=== PATIENT | female | born 1975 | race African-American/Black ===

== ENCOUNTER 2017-11-03 15:43 | Emergency (ER) | payer OTHER ==
[2017-11-03 15:51] VITALS: BMI 25.5
--- NOTE | 2017-11-03 16:31 | PDOC ---
History of Present Illness - General Chief Complaint: Palpitations Stated Complaint: PALPITATIONS Time Seen by Provider: 11/03/17 15:53 History Source: Patient Exam Limitations: No Limitations - History of Present Illness Initial Comments: 11/03/17 16:22 42 yo female no sig pmh presents to the ED for 2 weeks of intermittent chest palpitations, left chest soreness and left shoulder and head pain. Patient states these s/s started suddenly without warning or correlation to activity and palpations/chest soreness occur around 3X a day. Palpitations are made better with deep breaths and resolve in less than 5 min. Patient went to an urgent care 1 week ago and was told to take Ibuprofen which has not helped. No current chest soreness or palpitations. Patient denies SOB, back pain, dizziness /lightheadedness, n/v/f/c or recent illness or travel. Past History - Past Medical History Allergies/Adverse Reactions: Allergies Allergy/AdvReac Type Severity Reaction Status Date / Time No Known Allergies Allergy Verified 11/03/17 15:45 Home Medications: Ambulatory Orders NK [No Known Home Medication] 11/03/17 COPD: No - Surgical History Appendectomy: Yes - Suicide/Smoking/Psychosocial Hx Smoking History: Never smoked Hx Alcohol Use: No Drug/Substance Use Hx: No Review of Systems - Review of Systems Constitutional: No: Chills, Fever, Weakness Respiratory: No: Orthopnea, Shortness of Breath, SOB with Exertion Cardiac (ROS): Yes: Other (left breast soreness). No: Chest Pain ABD/GI: No: Constipated, Diarrhea, Nausea, Vomiting : No: Burning, Dysuria Musculoskeletal: Yes: Other (left shoulder pain). No: Back Pain *Physical Exam - Vital Signs Last Vital Signs Temp Pulse Resp BP Pulse Ox 99.1 F 78 24 106/59 100 11/03/17 15:46 11/03/17 15:46 11/03/17 15:46 11/03/17 15:46 11/03/17 15:46 - Physical Exam General Appearance: Yes: Nourished, Appropriately Dressed. No: Apparent Distress HEENT: positive: EOMI Respiratory/Chest: positive: Lungs Clear, Normal Breath Sounds Cardiovascular: positive: Regular Rhythm, Regular Rate, S1, S2. negative: Edema , JVD, Murmur Vascular Pulses: Dorsalis-Pedis (R): 4+, Doralis-Pedis (L): 4+ Gastrointestinal/Abdominal: positive: Normal Bowel Sounds. negative: Rebound, Tenderness Musculoskeletal: positive: Normal Inspection Extremity: positive: Normal Capillary Refill Integumentary: positive: Normal Color, Dry, Warm Neurologic: positive: Fully Oriented, Alert, Normal Mood/Affect ED Treatment Course - LABORATORY CBC & Chemistry Diagram: 11/03/17 17:00 11/03/17 17:00 Medical Decision Making - Medical Decision Making 11/03/17 19:09 42 yo female no sig pmh presents to the ED for 2 weeks of intermittent chest palpitations, left chest soreness and left shoulder and head pain. Patient states these s/s started suddenly without warning or correlation to activity and palpations/chest soreness occur around 3X a day. Palpitations are made better with deep breaths and resolve in less than 5 min. Patient went to an urgent care 1 week ago and was told to take Ibuprofen which has not helped. No current chest soreness or palpitations. Patient denies SOB, back pain, dizziness /lightheadedness, n/v/f/c or recent illness or travel. Exam: Heart and lungs clear. No pulsitile masses equal pressures in bilateral upper ext Labs: Trops negative, Normal EKG and Normal; Chest x ray Will send patient home with PCP follow up and advise holter monitor *DC/Admit/Observation/Transfer Diagnosis at time of Disposition: Palpitations - Discharge Dispostion Disposition: HOME Condition at time of disposition: Good Decision to Admit order: No - Referrals Referrals: papi goncalves [Other] - Patient Instructions Printed Discharge Instructions: Arrhythmias, DI for Arrhythmias, DI for Palpitations Additional Instructions: Please follow up with your Primary care doctor and set appointment within the next 2 days. Request a Holter monitor as well. Please return to the Emergency Room for severe chest pain, palpitations that do not stop on there own, dizziness or shortness of breath. Thank you - Post Discharge Activity Forms/Work/School Notes: Back to Work
[2017-11-03 17:08] LABS: BASO % 0.9 % (0-2.0); EOS % 7.2 % (0-4.5); HEMATOCRIT 34.8 % (32.4-45.2); HEMOGLOBIN 11.6 GM/dL (10.7-15.3); LYMPH % 32.6 % (8-40); MCH 29.2 pg (25.7-33.7); MCHC 33.4 g/dl (32.0-36.0); MEAN CELL VOLUME 87.3 fl (80-96); MEAN PLT VOLUME 10.6 fl (7.5-11.1); MONO % 12.4 % (3.8-10.2); NEUT % 46.9 % (42.8-82.8); PLATELET COUNT 152 K/MM3 (134-434); RBC 3.99 M/mm3 (3.60-5.2); RDW 15.4 % (11.6-15.6); WHITE BLOOD COUNT 4.6 K/mm3 (4.0-10.0)
[2017-11-03 17:32] LABS: ANION GAP 9 MMOL/L (8-16); BILIRUBIN,TOTAL 0.3 mg/dL (0.2-1.0); BLOOD UREA NITROGEN 16 mg/dL (7-18); CALCIUM 9.2 mg/dL (8.5-10.1); CHLORIDE 105 mmol/L (98-107); CO2 27 mmol/L (21-32); CREATININE 1.1 mg/dL (0.55-1.3); GLUCOSE,RANDOM 91 mg/dL (74-106); SGPT/ALT 16 U/L (13-61); SODIUM 141 mmol/L (136-145); TOT PROT 7.7 g/dl (6.4-8.2)
[2017-11-03 17:36] LABS: ALK PHOS 55 U/L (45-117); SGOT/AST 12 U/L (15-37)
--- NOTE | 2017-11-03 19:16 | PDOC ---
Attending Attestation - Resident Resident Name: Cesar Barbosa - ED Attending Attestation I have performed the following: I have examined & evaluated the patient, The case was reviewed & discussed with the resident, I agree w/resident's findings & plan, Exceptions are as noted - HPI HPI: 11/03/17 19:07 Patient is a 42 year old female with no significant past medical history who presents to the ED with complaints of intermittent palpitations that began 2 weeks ago. Patient reports chest palpitations lasting a few minutes at a time and associated left chest soreness as well as left shoulder pain and head pain. She reports symptoms occurr about 3 times per day without warning. Patient reports symptoms subside after 5 minutes. She states taking deep breaths helps alleviate the symptoms. Pt had an episode at work today that prompted her to come to ER, but she currently denies any symptoms. Currently denies chest pain, Sob. Denies nausea, vomiting. Denies contact with sick individuals, out of state travelling. Denies dysuria, hematuria. Denies diarrhea, constipation. Denies any other symptoms. Allergies: None Social history: No smoking. No alcohol. No illicit drugs. Surgical history: None PMD: None - Physicial Exam PE: 11/03/17 19:10 "GENERAL: Awake, alert, and fully oriented, in no acute distress. HEAD: No signs of trauma EYES: PERRLA, EOMI, sclera anicteric, conjunctiva clear ENT: Auricles normal inspection, hearing grossly normal, nares patent, oropharynx clear without exudates. Moist mucosa NECK: Nontender, no stepoffs, Normal ROM, supple, no lymphadenopathy, JVD, or masses LUNGS: Breath sounds equal, clear to auscultation bilaterally. No wheezes, and no crackles HEART: Regular rate and rhythm, normal S1 and S2, no murmurs, rubs or gallops ABDOMEN: Soft, nontender, normoactive bowel sounds. No guarding, no rebound. No masses EXTREMITIES: Normal range of motion, no edema. No clubbing or cyanosis. No cords, erythema, or tenderness NEUROLOGICAL: Cranial nerves II through XII intact. 5/5 strength and sensation in all extremities, Normal speech, normal gait, normal cerebellar function SKIN: Warm, Dry, normal turgor, no rashes or lesions noted." - Medical Decision Making 11/03/17 19:11 42 F with intermittent palpitations x 2 weeks. EKG NSR with no signs of arrhythmia at the moment. No signs of ischemia. Vitals wnl. Pt currently asymptomatic. - Labs, trop - CXR 11/03/17 19:16 Labs wnl, trop negative XR negative on my read Pt continues to be asymptomatic Pt to f/u with PMD for holter monitor. Pt is well appearing, with normal vitals. Clinically stable for DC at this time. I discussed the physical exam findings, ancillary test results and final diagnoses with the patient. I answered all of the patient's questions. The patient was satisfied with the care received and felt comfortable with the discharge plan and treatment plan. The patient agrees to follow up with the primary care physician within 24-72 hours.
[2017-11-03 20:37] VITALS: BP 110/76; PULSE 86; TEMP 98.5
--- NOTE | 2017-11-04 21:29 | EKG ---
Test Reason : Blood Pressure : / mmHG Vent. Rate : 066 BPM Atrial Rate : 066 BPM P-R Int : 162 ms QRS Dur : 082 ms QT Int : 400 ms P-R-T Axes : 069 071 061 degrees QTc Int : 419 ms NORMAL SINUS RHYTHM NORMAL ECG NO PREVIOUS ECGS AVAILABLE Confirmed by NICK WALL MD ([id number]) on 11/04/2017 9:29:22 PM Referred By: Confirmed By:NICK WALL MD
== END 2017-11-03 19:58 | disposition home or self-care (01) ==
LOC: JER 15:43
DX: R00.2 Palpitations (principal)
CPT/HCPCS: 36415; 71046-TC-FY; 80053; 82550; 82553; 84484; 84703; 85025; 93005; 93010; 99285-25

== ENCOUNTER 2017-11-13 08:19 | Emergency (ER) | payer OTHER ==
[2017-11-13 08:27] VITALS: BP 113/56; PULSE 78; TEMP 98.3; BMI 24.6
--- NOTE | 2017-11-13 08:44 | PDOC ---
History of Present Illness - General Chief Complaint: Pain Stated Complaint: extreme pain in rt leg Time Seen by Provider: 11/13/17 08:33 History Source: Patient Exam Limitations: No Limitations - History of Present Illness Initial Comments: 11/13/17 08:49 Patient for the past 3 days has had progressive worsening of right groin and hip pain. 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 States is progressively worsened where yesterday she was out and needed to take an ambulance. Went to [facility] where she was not attended to, returned home and came today for further evaluation. Denies numbness or tingling to foot, has no history of DVT, no deep fevers shortness of breath palpitations or any other illness. Only ibuprofen for pain relief Occurred: reports: other Severity: reports: moderate Pain Location: reports: lower extremity Method of Injury: Yes: unknown Modifying Factors: improves with: None Loss of Consciousness: no loss of consciousness Associated Symptoms (Fall): denies symptoms Past History - Travel Traveled outside of the country in the last 30 days: No Close contact w/someone who was outside of country & ill: No - Past Medical History Allergies/Adverse Reactions: Allergies Allergy/AdvReac Type Severity Reaction Status Date / Time No Known Allergies Allergy Verified 11/13/17 08:22 Home Medications: Ambulatory Orders Cyclobenzaprine HCl 10 mg PO Q8H PRN #14 tablet 11/13/17 COPD: No - Surgical History Appendectomy: Yes - Suicide/Smoking/Psychosocial Hx Smoking History: Never smoked Hx Alcohol Use: No Drug/Substance Use Hx: No Review of Systems - Review of Systems Able to Perform ROS?: Yes Is the patient limited Czech proficient: Yes Constitutional: Yes: Symptoms Reported, See HPI, Malaise. No: Fever HEENTM: Yes: Symptoms Reported Respiratory: No: Symptoms reported Musculoskeletal: Yes: Symptoms Reported, See HPI, Joint Pain, Joint Swelling, Muscle Pain Integumentary: Yes: Symptoms Reported All Other Systems: Reviewed and Negative *Physical Exam - Vital Signs Last Vital Signs Temp Pulse Resp BP Pulse Ox 98.3 F 78 20 113/56 L 100 11/13/17 08:23 11/13/17 08:23 11/13/17 08:23 11/13/17 08:23 11/13/17 08:23 - Physical Exam General Appearance: Yes: Nourished, Appropriately Dressed, Apparent Distress, Mild Distress HEENT: positive: FELICITY, Normal ENT Inspection, TMs Normal, Pharynx Normal Neck: positive: Supple. negative: Tender Respiratory/Chest: positive: Lungs Clear Musculoskeletal: positive: Normal Inspection Extremity: positive: Normal Capillary Refill, Normal Inspection. negative: Normal Range of Motion (range of motion secondary to pain, swelling, and mild spasm palpated to the right inguinal area/groin. Pain is reproduced with any movement to the inguinal ligament and quads tendon) Integumentary: positive: Normal Color Neurologic: positive: lap hand tool II-XII NML intact, Fully Oriented, Alert, Normal Mood/ Affect, Normal Response, Motor Strength 06/23 Progress Note - Progress Note Progress Note: Right inguinal groin strain, all treat with NSAIDs and cyclobenzaprine *DC/Admit/Observation/Transfer Diagnosis at time of Disposition: Inguinal strain Qualifiers: Encounter type: initial encounter Laterality: right Qualified Code(s): S76.211A - Strain of adductor muscle, fascia and tendon of right thigh, initial encounter - Discharge Dispostion Disposition: HOME Condition at time of disposition: Stable Decision to Admit order: No - Prescriptions Prescriptions: Cyclobenzaprine HCl 10 mg PO Q8H PRN #14 tablet PRN Reason: spasm - Referrals Referrals: Satish Rodriguez MD [Staff Physician] - - Patient Instructions Printed Discharge Instructions: DI for Groin Strain Additional Instructions: Rest, no heavy lifting or exercise until pain is resolved Hot soaks to neck and low back as often as possible/hot showers or Jacuzzis No massage or therapy until spasm is gone Continue ibuprofen 2200 milligrams tablets every 6 hours for the next 3 days then as needed for pain and swelling Cyclobenzaprine 1-10mg every 8 hours as needed for spasm If not significant improvement within 24 hours with medication and rest regime, followup with private physician for change in medications and /or therapy. - Post Discharge Activity Forms/Work/School Notes: Back to Work
[2017-11-13] MEDS ORDERED: KETOROLAC TROMETHAMINE 60 MG/2 ML VIAL ONE (08:46)
[2017-11-13] MEDS ORDERED: KETOROLAC TROMETHAMINE 60 MG/2 ML VIAL IM ONE (08:49)
[2017-11-13] MEDS ORDERED: CYCLOBENZAPRINE HCL 10 MG TABLET (FP) ONE (09:08)
== END 2017-11-13 09:16 | disposition home or self-care (01) ==
LOC: JERFT 08:19 → JER 08:19 → JERFT 09:16
PROC: 3E0233Z Introduction of Anti-inflammatory into Muscle, Percutaneous Approach (ICD-10-PCS; principal; 2017-11-13)
DX: S76.211A Strain of adductor muscle, fascia and tendon of right thigh, initial encounter (principal); X50.1XXA Overexertion from prolonged static or awkward postures, initial encounter; Y93.89 Activity, other specified; Y92.89 Other specified places as the place of occurrence of the external cause; Y99.8 Other external cause status
CPT/HCPCS: 99281-25

== ENCOUNTER 2018-11-26 15:49 | Emergency (ER) | payer OTHER ==
[2018-11-26 16:01] VITALS: BMI 27.7
--- NOTE | 2018-11-26 16:01 | PDOC ---
Rapid Medical Evaluation Time Seen by Provider: 11/26/18 15:58 Medical Evaluation: Allergies Allergy/AdvReac Type Severity Reaction Status Date / Time No Known Allergies Allergy Verified 11/13/17 08:22 11/26/18 15:58 I performed a brief in-person evaluation of this patient. Healthy 43-year-old female with intermittent pain in her right side since yesterday evening. No vomiting, diarrhea, dysuria, other symptoms. Hx appendectomy. I have ordered the following: UA, pgu Patient will proceed to the main ED for further evaluation. Discharge Disposition - Diagnosis Abdominal pain - Referrals - Patient Instructions - Post Discharge Activity
[2018-11-26 16:48] LABS: PH,URINE >= 9.0 (5.0-8.0); URINE APPEARANCE CLEAR; URINE BILIRUBIN NEGATIVE (NEGATIVE); URINE COLOR YELLOW; URINE GLUCOSE (UA) NEGATIVE (NEGATIVE); URINE KETONE NEGATIVE (NEGATIVE); URINE LEUK ESTERASE NEGATIVE (NEGATIVE); URINE NITRITE NEGATIVE (NEGATIVE); URINE PROTEIN NEGATIVE (NEGATIVE)
[2018-11-26] MEDS ORDERED: ACETAMINOPHEN 1000 MG/100 ML VIAL (NON FORMULARY) IVPB ONE (17:58)
[2018-11-26] MEDS ORDERED: SODIUM CHLORIDE 1,000 ML IV STA (17:58)
[2018-11-26] MEDS ORDERED: ACETAMINOPHEN INJECTION 100 ML IVPB ONE (18:01)
[2018-11-26 18:24] LABS: BASO % 0.7 % (0-2.0); EOS % 5.6 % (0-4.5); HEMATOCRIT 36.3 % (32.4-45.2); LYMPH % 28.7 % (8-40); MCH 29.5 pg (25.7-33.7); MCHC 33.1 g/dl (32.0-36.0); MEAN CELL VOLUME 89.2 fl (80-96); MONO % 12.8 % (3.8-10.2); NEUT % 52.2 % (42.8-82.8); RBC 4.07 M/mm3 (3.60-5.2); WHITE BLOOD COUNT 5.6 K/mm3 (4.0-10.0)
--- NOTE | 2018-11-26 18:37 | PDOC ---
History of Present Illness - General Chief Complaint: Pain, Acute Stated Complaint: ABD PAIN LWR RT QUAD Time Seen by Provider: 11/26/18 15:58 History Source: Patient Exam Limitations: Clinical Condition - History of Present Illness Initial Comments: 11/26/18 18:35 Patient with no significant past medical history presented with complaint of sudden onset of right lower quadrant and pelvic region pain upon waking this morning. Denies nausea, vomiting, fever, chills, vaginal discharge or vaginal bleeding. Patient described pain as cramping pinching pain. LMP November 12. Denies any other symptoms. Patient s/p appendectomy in 1995. Is this a multiple visit Asthma Patient?: No Past History - Past Medical History Allergies/Adverse Reactions: Allergies Allergy/AdvReac Type Severity Reaction Status Date / Time No Known Allergies Allergy Verified 11/13/17 08:22 Home Medications: Ambulatory Orders NK [No Known Home Medication] 11/26/18 COPD: No - Surgical History Appendectomy: Yes - Immunization History Immunization Up to Date: No - Psycho Social/Smoking Cessation Hx Smoking History: Never smoked Have you smoked in the past 12 months: No Information on smoking cessation initiated: No Hx Alcohol Use: No Drug/Substance Use Hx: No Review of Systems - Review of Systems Able to Perform ROS?: Yes Is the patient limited Slovenian proficient: No Constitutional: No: Chills, Fever, Malaise HEENTM: No: Symptoms Reported Respiratory: No: Symptoms reported Cardiac (ROS): No: Symptoms Reported ABD/GI: Yes: Symptoms Reported, See HPI, Abdominal cramping (RLQ pain). No: Abd. Pain w/ defecation, Constipated, Diarrhea, Difficulty Swallowing, Nausea, Poor Appetite, Rectal Bleeding, Vomiting, Indigestion : Yes: See HPI, Pain (right pelvic). No: Symptoms Reported, Burning, Dysuria , Discharge, Frequency, Flank Pain, Hematuria, Incontinence, Urgency Musculoskeletal: No: Symptoms Reported Integumentary: No: Symptoms Reported Neurological: No: Symptoms reported All Other Systems: Reviewed and Negative *Physical Exam - Vital Signs Last Vital Signs Temp Pulse Resp BP Pulse Ox 98.0 F 71 18 116/62 100 11/26/18 15:58 11/26/18 15:58 11/26/18 15:58 11/26/18 15:58 11/26/18 15:58 - Physical Exam Comments: 11/26/18 18:34 GENERAL: Well developed, well nourished. Awake and alert. No acute distress. NECK: Supple. Full ROM. CARDIOVASCULAR: Regular rate and rhythm. No murmurs, rubs, or gallops. Distal pulses are 2+ and symmetric. PULMONARY: No evidence of respiratory distress. Lungs clear to auscultation bilaterally. No wheezing, rales or rhonchi. ABDOMINAL: Soft. Mild tenderness right lower quadrant and pelvic region. Non-distended. No rebound or guarding. No organomegaly. Normoactive bowel sounds. MUSCULOSKELETAL Normal range of motion at all joints. SKIN: Warm and dry. Normal capillary refill. NEUROLOGICAL: Alert, awake, appropriate. Gait is normal without ataxia. PSYCHIATRIC: Cooperative. Good eye contact. Appropriate mood General Appearance: Yes: Nourished, Appropriately Dressed. No: Apparent Distress ED Treatment Course - LABORATORY CBC & Chemistry Diagram: 11/26/18 18:05 11/26/18 18:05 - ADDITIONAL ORDERS Additional order review: Laboratory Results 11/26/18 11/26/18 16:17 16:17 Urine Color Yellow Urine Appearance Clear Urine pH >= 9.[address] [place] [address] 1.022 Urine Protein Negative Urine Glucose (UA) Negative Urine Ketones Negative Urine Blood Negative Urine Nitrite Negative Urine Bilirubin Negative Urine Urobilinogen 1.0 Ur Leukocyte Esterase Negative Urine HCG, Qual Negative - RADIOLOGY Radiology Studies Ordered: Category Date Time Status TRANSVAGINAL ULTRASOUND US [US] Stat Ultrasound 11/26/18 17:55 Ordered - Medications Given in the ED: ED Medications Discontinued Medications Generic Name Dose Route Start Last Admin Trade Name Reyesq PRN Reason Stop Dose Admin Acetaminophen 1,000 mg 11/26/18 17:58 11/26/18 18:08 Ofirmev Injection - IVPB 11/26/18 17:59 1,000 mg ONCE ONE Administration Medical Decision Making - Medical Decision Making 11/26/18 18:36 Patient with no significant past medical history presented with complaint of sudden onset of right lower quadrant and pelvic region pain upon waking this morning. Denies nausea, vomiting, fever, chills, vaginal discharge or vaginal bleeding. Patient described pain as cramping pinching pain. LMP November 12. Denies any other symptoms. Patient s/p appendectomy in 1995. Exam significant for mild tenderness to right lower quadrant and pelvic region without guarding or rebound otherwise normal exam. CBC, CMP and lipase level ordered. Pelvic ultrasound ordered to evaluate for pelvic pathology. IV hydration with 1 L normal saline ordered and Tylenol 1 g IV ordered for pain. Treat based on lab and imaging results 11/26/18 18:59 CBC, UA unremarkable. CMP labs pending. Hcg neg. Pelvic U/S pending. [facility] SEBASTIEN Naranjo for f/u care Discharge - Discharge Information Problems reviewed: Yes Clinical Impression/Diagnosis: Abdominal pain Qualifiers: Abdominal location: lower abdomen, unspecified Qualified Code(s): R10.30 - Lower abdominal pain, unspecified Condition: Stable - Follow up/Referral Referrals: ON STAFF,NOT [Primary Care Provider] - - Patient Discharge Instructions - Post Discharge Activity
[2018-11-26 18:59] LABS: BLOOD UREA NITROGEN 19.1 mg/dL (7-18)
[2018-11-26 19:00] LABS: ALBUMIN 4.1 g/dl (3.4-5.0); BILIRUBIN,TOTAL 0.3 mg/dL (0.2-1); CALCIUM 9.2 mg/dL (8.5-10.1); TOT PROT 7.8 g/dl (6.4-8.2)
[2018-11-26 19:08] LABS: PLATELET COUNT 182 K/MM3 (134-434)
--- NOTE | 2018-11-26 19:18 | PDOC ---
History of Present Illness - General Chief Complaint: Pain, Acute Stated Complaint: ABD PAIN LWR RT QUAD Time Seen by Provider: 11/26/18 15:58 Past History - Past Medical History Allergies/Adverse Reactions: Allergies Allergy/AdvReac Type Severity Reaction Status Date / Time No Known Allergies Allergy Verified 11/13/17 08:22 Home Medications: Ambulatory Orders NK [No Known Home Medication] 11/26/18 COPD: No - Surgical History Appendectomy: Yes - Immunization History Immunization Up to Date: No - Psycho Social/Smoking Cessation Hx Smoking History: Never smoked Have you smoked in the past 12 months: No Information on smoking cessation initiated: No Hx Alcohol Use: No Drug/Substance Use Hx: No Review of Systems - Review of Systems Is the patient limited Telugu proficient: No *Physical Exam - Vital Signs Last Vital Signs Temp Pulse Resp BP Pulse Ox 98.0 F 71 18 116/62 100 11/26/18 15:58 11/26/18 15:58 11/26/18 15:58 11/26/18 15:58 11/26/18 15:58 ED Treatment Course - LABORATORY CBC & Chemistry Diagram: 11/26/18 18:05 11/26/18 18:05 - ADDITIONAL ORDERS Additional order review: Laboratory Results 11/26/18 11/26/18 11/26/18 18:05 16:17 16:17 Sodium 137 Potassium 4.0 Chloride 105 Carbon Dioxide 26 Anion Gap 6 L BUN 19.1 H Creatinine 1.0 Est GFR (CKD-EPI)AfAm 79.91 Est GFR (CKD-EPI)NonAf 68.95 Random Glucose 83 Calcium 9.2 Total Bilirubin 0.3 AST 19 ALT 21 Alkaline Phosphatase 64 Total Protein 7.8 Albumin 4.1 Lipase 234 Urine Color Yellow Urine Appearance Clear Urine pH >= 9.0 H Ur Specific [place] 1.022 Urine Protein Negative Urine Glucose (UA) Negative Urine Ketones Negative Urine Blood Negative Urine Nitrite Negative Urine Bilirubin Negative Urine Urobilinogen 1.0 Ur Leukocyte Esterase Negative Urine HCG, Qual Negative 11/26/18 18:05 RBC 4.07 MCV 89.2 MCHC 33.1 RDW 15.0 MPV 10.0 Neutrophils % 52.2 Lymphocytes % 28.7 Monocytes % 12.8 H Eosinophils % 5.6 H Basophils % 0.7 - Medications Given in the ED: ED Medications Discontinued Medications Generic Name Dose Route Start Last Admin Trade Name Freq PRN Reason Stop Dose Admin Acetaminophen 1,000 mg 11/26/18 17:58 11/26/18 18:08 Ofirmev Injection - IVPB 11/26/18 17:59 1,000 mg ONCE ONE Administration Sodium Chloride 1,000 mls @ 1,000 mls/hr 11/26/18 17:58 11/26/18 18:08 Normal Saline - IV 11/26/18 18:57 1,000 mls/hr ASDIR STA Administration Discharge - Discharge Information Clinical Impression/Diagnosis: Abdominal pain Qualifiers: Abdominal location: lower abdomen, unspecified Qualified Code(s): R10.30 - Lower abdominal pain, unspecified Condition: Stable - Follow up/Referral Referrals: ON STAFF,NOT [Primary Care Provider] - - Patient Discharge Instructions - Post Discharge Activity
--- NOTE | 2018-11-26 19:42 | PDOC ---
*Physical Exam - Vital Signs Last Vital Signs Temp Pulse Resp BP Pulse Ox 98.0 F 71 18 116/62 100 11/26/18 15:58 11/26/18 15:58 11/26/18 15:58 11/26/18 15:58 11/26/18 15:58 ED Treatment Course - LABORATORY CBC & Chemistry Diagram: 11/26/18 18:05 11/26/18 18:05 - ADDITIONAL ORDERS Additional order review: Laboratory Results 11/26/18 11/26/18 11/26/18 18:05 16:17 16:17 Sodium 137 Potassium 4.0 Chloride 105 Carbon Dioxide 26 Anion Gap 6 L BUN 19.1 H Creatinine 1.0 Est GFR (CKD-EPI)AfAm 79.91 Est GFR (CKD-EPI)NonAf 68.95 Random Glucose 83 Calcium 9.2 Total Bilirubin 0.3 AST 19 ALT 21 Alkaline Phosphatase 64 Total Protein 7.8 Albumin 4.1 Lipase 234 Urine Color Yellow Urine Appearance Clear Urine pH >= 9.0 H Ur Specific [place] 1.022 Urine Protein Negative Urine Glucose (UA) Negative Urine Ketones Negative Urine Blood Negative Urine Nitrite Negative Urine Bilirubin Negative Urine Urobilinogen 1.0 Ur Leukocyte Esterase Negative Urine HCG, Qual Negative 11/26/18 18:05 RBC 4.07 MCV 89.2 MCHC 33.1 RDW 15.0 MPV 10.0 Neutrophils % 52.2 Lymphocytes % 28.7 Monocytes % 12.8 H Eosinophils % 5.6 H Basophils % 0.7 - Medications Given in the ED: ED Medications Discontinued Medications Generic Name Dose Route Start Last Admin Trade Name Freq PRN Reason Stop Dose Admin Acetaminophen 1,000 mg 11/26/18 17:58 11/26/18 18:08 Ofirmev Injection - IVPB 11/26/18 17:59 1,000 mg ONCE ONE Administration Sodium Chloride 1,000 mls @ 1,000 mls/hr 11/26/18 17:58 11/26/18 18:08 Normal Saline - IV 11/26/18 18:57 1,000 mls/hr ASDIR STA Administration Medical Decision Making - Medical Decision Making 11/26/18 19:42 patient is feeling better. US discussed Patient to follow-up with gynecology. Discharge - Discharge Information Problems reviewed: Yes Clinical Impression/Diagnosis: Abdominal pain Qualifiers: Abdominal location: lower abdomen, unspecified Qualified Code(s): R10.30 - Lower abdominal pain, unspecified Ovarian cyst Qualifiers: Laterality: bilateral Qualified Code(s): N83.201 - Unspecified ovarian cyst, right side Condition: Stable - Follow up/Referral Referrals: ON STAFF,NOT [Primary Care Provider] - - Patient Discharge Instructions Patient Printed Discharge Instructions: Ovarian Cyst Additional Instructions: TVUS b/l ovarian cysts. please see a religious educator as soon as possible you May take ibuprofen every 6 hours as needed for pain. - Post Discharge Activity Work/Back to School Note: Back to Work
[2018-11-26 19:47] VITALS: BP 119/72; PULSE 60; TEMP 98.2
== END 2018-11-26 20:05 | disposition home or self-care (01) ==
LOC: JER 15:49
PROC: 3E033NZ Introduction of Analgesics, Hypnotics, Sedatives into Peripheral Vein, Percutaneous Approach (ICD-10-PCS; principal; 2018-11-26)
DX: N83.201 Unspecified ovarian cyst, right side (principal)
CPT/HCPCS: 36415; 76830-TC; 80053; 81003; 83690; 84703; 85025; 87086; 99283-25; J0131; J7030

== ENCOUNTER 2021-04-08 08:05 | Emergency (ER) | payer OTHER ==
[2021-04-08 08:15] VITALS: BP 123/50; PULSE 63; TEMP 97.7; BMI 23.3
[2021-04-08] MEDS ORDERED: KETOROLAC TROMETHAMINE 60 MG/2 ML VIAL IM ONE (08:57)
[2021-04-08] MEDS ORDERED: KETOROLAC TROMETHAMINE 60 MG/2 ML VIAL ONE (09:09)
== END 2021-04-08 09:22 | disposition home or self-care (01) ==
LOC: JER 08:05
PROC: 3E023GC Introduction of Other Therapeutic Substance into Muscle, Percutaneous Approach (ICD-10-PCS; principal; 2021-04-08)
DX: S39.012A Strain of muscle, fascia and tendon of lower back, initial encounter (principal); X50.0XXA Overexertion from strenuous movement or load, initial encounter
CPT/HCPCS: 99284-25

== ENCOUNTER 2021-11-01 07:39 | Emergency (ER) | payer OTHER ==
[2021-11-01 07:57] VITALS: BP 131/75; PULSE 65; RESP 17; TEMP 0; BMI 25.1
[2021-11-01] MEDS ORDERED: KETOROLAC TROMETHAMINE 30 MG/1 ML VIAL IM ONE (08:11)
[2021-11-01] MEDS ORDERED: LIDOCAINE 5% TOPICAL PATCH TP ONE (08:11)
[2021-11-01] MEDS ORDERED: LIDOCAINE 5% TOPICAL PATCH ONE (08:11)
[2021-11-01] MEDS ORDERED: KETOROLAC TROMETHAMINE 30 MG/1 ML VIAL ONE (08:12)
[2021-11-01] MEDS ORDERED: LIDOCAINE PATCH REMOVAL MC ONE (22:00)
== END 2021-11-01 08:54 | disposition home or self-care (01) ==
LOC: JERFT 07:39 → JER 07:39 → JERFT 08:54
PROC: 3E0233Z Introduction of Anti-inflammatory into Muscle, Percutaneous Approach (ICD-10-PCS; principal; 2021-11-01)
DX: M25.511 Pain in right shoulder (principal)
CPT/HCPCS: 99284-25